=== PATIENT | female | born 1980 | race Two or more races ===

== ENCOUNTER 2021-02-07 15:24 | Inpatient (IN) | payer OTHER ==
[2021-02-07] MEDS ORDERED: NICOTINE 10 MG CARTRIDGE (INHALER) IH PRN (15:59)
[2021-02-07] MEDS ORDERED: ACETAMINOPHEN 325 MG TABLET (FP) PO PRN ×2 (15:59)
[2021-02-07] MEDS ORDERED: MAGNESIUM HYDROX 2400MG/30ML ORAL SUSPENSION 30 ML CUP PO PRN (15:59)
[2021-02-07] MEDS ORDERED: BISMUTH SUBSALICYLATE 524 MG/30 ML PO PRN (15:59)
[2021-02-07] MEDS ORDERED: LORazepam 1 MG TABLET PO PRN (15:59)
[2021-02-07] MEDS ORDERED: IBUPROFEN 400 MG TABLET (FP) PO PRN (15:59)
[2021-02-07] MEDS ORDERED: MAGNESIUM CITRATE 300 ML BOTTLE PO PRN (15:59)
[2021-02-07] MEDS ORDERED: MENTHOL/PHENOL 1 EACH UD MM PRN (15:59)
[2021-02-07] MEDS ORDERED: MAG HYDROX/AL HYDROX/SIMETH 30 ML UNIT-DOSE CUP PO PRN (15:59)
[2021-02-07] MEDS ORDERED: ONDANSETRON *ODT* 4 MG TABLET SL PRN (15:59)
[2021-02-07 16:54] VITALS: BMI 29.7
[2021-02-07] MEDS: hydrOXYzine PAMOATE 25 MG CAPSULE (FP) PO SCH ×2 (18:08→22:42)
[2021-02-07] MEDS: LORazepam 2 MG TABLET PO SCH ×2 (18:08→22:42)
[2021-02-07] MEDS ORDERED: MELATONIN 5 MG TABLETS PO SCH (22:00)
[2021-02-07] MEDS: THIAMINE HCL 100 MG TABLET (FP) PO SCH (22:42)
[2021-02-08] MEDS: LORazepam 2 MG TABLET PO SCH ×4 (06:06→22:15)
[2021-02-08] MEDS: hydrOXYzine PAMOATE 25 MG CAPSULE (FP) PO SCH ×5 (08:03→22:16)
[2021-02-08] MEDS ORDERED: PRENATAL VITAMINS W/ FOLIC ACID TABLET (FP) PO SCH (10:00)
[2021-02-08] MEDS ORDERED: NICOTINE 14 MG/24 HOURS TOPICAL PATCH TD SCH (10:00)
[2021-02-08] MEDS: METHOCARBAMOL 500 MG TABLET PO PRN ×2 (10:14→22:15)
[2021-02-08 10:31] LABS: HEMATOCRIT 28.8 % (32.4-45.2); HEMOGLOBIN 9.7 GM/dL (10.7-15.3); MCH 29.7 pg (25.7-33.7); MCHC 33.7 g/dl (32.0-36.0); MEAN CELL VOLUME 88.1 fl (80-96); MEAN PLT VOLUME 9.4 fl (7.5-11.1); PLATELET COUNT 37 10^3/uL (134-434); RBC 3.27 M/mm3 (3.60-5.2); RDW 16.7 % (11.6-15.6); WHITE BLOOD COUNT 2.9 K/mm3 (4.0-10.0)
[2021-02-08 10:34] LABS: ALBUMIN 2.5 g/dl (3.4-5.0); CALCIUM 8.1 mg/dL (8.5-10.1)
[2021-02-08 10:35] LABS: BLOOD UREA NITROGEN 10.6 mg/dL (7-18)
[2021-02-08 10:38] LABS: CREATININE 0.7 mg/dL (0.55-1.3)
[2021-02-08 10:39] LABS: BILIRUBIN,TOTAL 1.7 mg/dL (0.2-1); TOT PROT 8.2 g/dl (6.4-8.2)
[2021-02-08] MEDS ORDERED: MELATONIN 5 MG TABLETS PO SCH (22:00)
[2021-02-08] MEDS: THIAMINE HCL 100 MG TABLET (FP) PO SCH (22:15)
[2021-02-09] MEDS ORDERED: LORazepam 1 MG TABLET PO SCH (05:00)
[2021-02-09] MEDS: hydrOXYzine PAMOATE 25 MG CAPSULE (FP) PO SCH (05:35)
[2021-02-09 09:40] VITALS: BP 142/69; PULSE 66; TEMP 97.1
[2021-02-10] MEDS ORDERED: LORazepam 0.5 MG TABLET PO PRN
[2021-02-10] MEDS ORDERED: LORazepam 0.5 MG TABLET PO SCH (05:00)
[2021-02-11] MEDS ORDERED: LORazepam 0.5 MG TABLET PO ONE (05:00)
== END 2021-02-09 10:10 | disposition left against medical advice (07) | DRG 770 ==
LOC: YASAS 15:24 → Y6N 16:26
PROVIDERS: ADMIT Allergy & Immunology; ATTEND Allergy & Immunology
PROC: HZ2ZZZZ Detoxification Services for Substance Abuse Treatment (ICD-10-PCS; principal; 2021-02-07)
DX: F10.230 Alcohol dependence with withdrawal, uncomplicated (principal); F10.24 Alcohol dependence with alcohol-induced mood disorder; F10.282 Alcohol dependence with alcohol-induced sleep disorder; F10.280 Alcohol dependence with alcohol-induced anxiety disorder; F41.9 Anxiety disorder, unspecified; F32.A Depression, unspecified; R94.5 Abnormal results of liver function studies; K59.00 Constipation, unspecified; Z62.810 Personal history of physical and sexual abuse in childhood; Z98.84 Bariatric surgery status; Z91.013 Allergy to seafood; Z56.0 Unemployment, unspecified
CPT/HCPCS: 36415; 80053; 85027; 86780; C9803; U0003; U0005